=== PATIENT | female | born 1970 | race Caucasian/White ===

== ENCOUNTER 2017-03-15 01:10 | Emergency (ER) | payer OTHER ==
[~2017-03-15] VITALS: Ht 167.6 cm; Wt 82.4 kg
[~2017-03-15 01:10] MED LIST: CIPRO500 MG PO; PYRIDIUM200 MG PO; VICODIN,LORT1 TABLET PO; ZITHROMAX250 MG PO
[2017-03-15] MEDS ORDERED: PREVACID15 MG PO (01:57)
[2017-03-15] MEDS ORDERED: BENADRYL25 MG PO (03:16)
[2017-03-15 03:47] VITALS: BP 124/78
== END 2017-03-15 03:48 | disposition home or self-care (01) ==
LOC: EME 01:10
DX: J45.901 Unspecified asthma with (acute) exacerbation (principal); T78.1XXA Other adverse food reactions, not elsewhere classified, initial encounter
CPT/HCPCS: 99281; 99284; J1100

== ENCOUNTER 2017-08-03 23:13 | Emergency (ER) | payer OTHER ==
[~2017-08-03] VITALS: Ht 167.6 cm; Wt 81.3 kg
[~2017-08-03 23:13] MED LIST changes: +BENADRYL25 MG PO; +PREVACID15 MG PO
[2017-08-04] MEDS ORDERED: VENTOLIN HFA18 GM IH (00:26)
[2017-08-04] MEDS ORDERED: DELTASONE20 M1 PO (00:55)
[2017-08-04 01:27] VITALS: BP 111/72
== END 2017-08-04 01:29 | disposition home or self-care (01) ==
LOC: EME 23:13
DX: J45.21 Mild intermittent asthma with (acute) exacerbation (principal)
CPT/HCPCS: 99281; 99284; J7512